=== PATIENT | male | born 1970 | race Caucasian/White ===

== ENCOUNTER 2018-09-29 14:57 | Emergency (ER) | payer OTHER ==
[~2018-09-29] VITALS: Ht 180.3 cm; Wt 106.8 kg
[2018-09-29 15:03] VITALS: BP 128/79
[2018-09-29] MEDS ORDERED: DIPH,PERTUSS(ACELL),TET VAC/PF 0.5 ML IM-VACC ONE ×2 (15:30→15:31)
[2018-09-29] MEDS ORDERED: LIDOCAINE 1%, 10ML INFIL ONE (15:30)
[2018-09-29] MEDS ORDERED: LIDOCAINE-MPF 1%, 5ML ONE (15:31)
--- NOTE | 2018-09-29 16:06 | NUR ---
Patient/Caregiver given discharge instructions and they have confirmed that they understand the instructions. Patient ambulatory with steady gait.
== END 2018-09-29 16:06 | disposition home or self-care (01) ==
LOC: ED 16:00
DX: S01.111A Laceration without foreign body of right eyelid and periocular area, initial encounter (principal); X58.XXXA Exposure to other specified factors, initial encounter; Y93.01 Activity, walking, marching and hiking; Y92.098 Other place in other non-institutional residence as the place of occurrence of the external cause; Y99.8 Other external cause status
CPT/HCPCS: 12051; 90471; 90715; 99284